=== PATIENT | male | born 1950 | race Caucasian/White ===

== ENCOUNTER 2017-01-19 12:08 | Inpatient (IN) | payer OTHER, MEDICARE ==
--- NOTE | 2017-01-19 11:57 | PDHPUP ---
History & Physical Update H&P update statement: This history and physical update is based on an assessment of the patient which was completed after admission or registration (within 24 hours), but prior to the surgery/procedure. H&P update: H&P reviewed & patient examined, no change in patient's condition since H&P completed
[~2017-01-19 12:08] MED LIST: ROPIVACAINE 0.2% 80 MG, EPINEPHrine 0.2 MG, KETOROLAC TROMETHAMINE 30 MG in SYRINGE 0 ML IU ONE; TRANEXAMIC ACID 3,000 MG in NS 50 ML IRR ONE; TRANEXAMIC ACID 3,000 MG/50 ML BAG IRR ONE
[2017-01-19] MEDS ORDERED: FAMOTIDINE 20 MG TAB PO ONE (12:47)
[2017-01-19] MEDS ORDERED: DEXAMETHASONE 4 MG/ML VIAL IVP ONE (12:47)
[2017-01-19] MEDS ORDERED: ACETAMINOPHEN 325 MG TAB PO ONE (12:47)
[2017-01-19] MEDS ORDERED: ceFAZolin 2 GM/SWFI 2 GM/20 ML SYR IVP ONE (12:47)
[2017-01-19] MEDS ORDERED: LIDOCAINE 1% 2 ML INJ ID PRN (12:54)
[2017-01-19] MEDS ORDERED: LR 1,000 ML IV ONE (12:54)
--- NOTE | 2017-01-19 14:31 | PDANEPAE ---
ANE History of Present Illness 66 yo M w OA here for R DEBBY ANE Past Medical History - Cardiovascular History Hx Hypertension: Yes Hx Arrhythmias: No Hx Chest Pain: No Hx Coronary Artery / Peripheral Vascular Disease: No Hx CHF / Valvular Disease: No Hx Palpitations: No - Pulmonary History Hx COPD: No Hx Asthma/Reactive Airway Disease: No Hx Recent Upper Respiratory Infection: No Hx Oxygen in Use at Home: No Hx Sleep Apnea: No Sleep Apnea Screening Result - Last Documented: Positive - Neurologic History Hx Cerebrovascular Accident: No Hx Seizures: No Hx Dementia: No - Endocrine History Hx Diabetes: No - Renal History Hx Renal Disorders: No - Liver History Hx Hepatic Disorders: No - Neurological & Psychiatric Hx Hx Neurological and Psychiatric Disorders: No - Cancer History Hx Cancer: No - Congenital Disorder History Hx Congenital Disorders: No - GI History Hx Gastrointestinal Disorders: Yes Gastrointestinal History Comment: reflux - Other Health History Other Health History: none - Chronic Pain History Chronic Pain: No - Surgical History Prior Surgeries: colonoscopy ANE Review of Systems Review of Systems: - Exercise capacity METS (RN): 5 METS ANE Patient History - Allergies Allergies/Adverse Reactions: No Known Allergies Allergy (Verified 12/16/16 11:18) - Home Medications Home Medications: Glucosamine/Chondroitin [Glucosamine/Chondroitin (*)] 1 each PO DAILY 12/09/16 [ Last Taken 01/05/17] Herbals/Supplements -Info Only 1 ea PO DAILY 12/09/16 [Last Taken 01/05/17] Ibuprofen [Motrin (*)] 200 mg PO DAILY PRN 12/09/16 [Last Taken 01/05/17] Lisinopril [Zestril 10 mg (*)] 10 mg PO BID 12/09/16 [Last Taken 01/05/17] Multivitamins [Multivitamin (*)] 1 each PO DAILY 12/09/16 [Last Taken 01/05/17] Testosterone [ANDROGEL 1% 5gm pkt (*)] 5 gm TD DAILY 12/09/16 [Last Taken ] - NPO status NPO Status: no food or drink >8 hours NPO Since - Liquids (Date): 01/19/17 NPO Since - Liquids (Time): 09:30 NPO Since - Solids (Date): 01/18/17 NPO Since - Solids (Time): 21:30 - Anes Hx Anes Hx: no prior problems - Smoking Hx Smoking Status: Never smoked - Alcohol Use Alcohol Use: Occasionally - Family Anes Hx Family Anes Hx: none Family Hx Anesthesia Complications: none ANE Labs/Vital Signs - Vital Signs Blood Pressure: 166/98 Heart Rate: 76 Respiratory Rate: 16 O2 Sat (%): 96 Height: 185.42 cm Weight: 92.986 kg ANE Physical Exam - Airway Neck exam: FROM Mallampati Score: Class 2 Mouth exam: normal dental/mouth exam - Pulmonary Pulmonary: no respiratory distress, clear to auscultation - Cardiovascular Cardiovascular: regular rate and rhythym, no murmur, rub, or gallop - ASA Status ASA Status: II ANE Anesthesia Plan Anesthesia Plan: GA with mask, spinal Total IV Anesthesia: Yes
[2017-01-19] MEDS ORDERED: MIDAZOLAM 2 MG/2 ML VIAL IVP ONE (14:33)
[2017-01-19] MEDS ORDERED: PROPOFOL/EMULSION 500 MG/50 ML BOTTLE IV ONE ×2 (14:51→15:56)
[2017-01-19] MEDS ORDERED: PROMETHAZINE HCL 25 MG SUPPR PR PRN (15:18)
[2017-01-19] MEDS ORDERED: LACTULOSE 20 GM/30 ML UDCUP PO PRN (15:18)
[2017-01-19] MEDS ORDERED: ONDANSETRON 4 MG/2 ML VIAL IVP PRN ×2 (15:18→15:54)
[2017-01-19] MEDS ORDERED: TEMAZEPAM 15 MG CAP PO PRN (15:18)
[2017-01-19] MEDS ORDERED: BISACODYL 10 MG SUPP PR PRN (15:18)
[2017-01-19] MEDS ORDERED: diphenhydrAMINE 25 MG CAP PO PRN (15:18)
[2017-01-19] MEDS ORDERED: METOCLOPRAMIDE 10 MG/2 ML VIAL IVP PRN (15:18)
[2017-01-19] MEDS ORDERED: MAGNESIUM HYDROXIDE 30 ML UDCUP PO PRN (15:18)
[2017-01-19] MEDS ORDERED: POLYETHYLENE GLYCOL 3350 17 GM PKT PO PRN (15:18)
[2017-01-19] MEDS ORDERED: ONDANSETRON DISINTEGRATING 4 MG TAB PO PRN (15:18)
[2017-01-19] MEDS ORDERED: DIPHENOXYLATE/ATROPINE LOMOTIL 1 TAB PO PRN (15:18)
[2017-01-19] MEDS ORDERED: CYCLOBENZAPRINE 10 MG TAB PO PRN (15:18)
[2017-01-19] MEDS ORDERED: PROMETHAZINE HCL 25 MG/ML INJ IVP PRN (15:18)
[2017-01-19] MEDS ORDERED: LR 1,000 ML IV SCH (15:30)
[2017-01-19] MEDS ORDERED: fentaNYL 100 MCG/2 ML INJ IVP PRN (15:54)
[2017-01-19] MEDS ORDERED: OXYCODONE/APAP 5/325 TAB PO PRN (15:54)
[2017-01-19] MEDS ORDERED: NALOXONE HCL 0.4 MG/ML INJ IVP PRN (15:54)
[2017-01-19] MEDS ORDERED: ACETAMINOPHEN 500 MG TAB PO PRN (15:54)
[2017-01-19] MEDS ORDERED: HYDROCODONE/APAP 5/325 TAB PO PRN (15:54)
[2017-01-19] MEDS ORDERED: HYDROmorphONE/DILAUDID 1 MG/ML INJ IVP PRN (15:54)
--- NOTE | 2017-01-19 16:24 | POSTOPPROG ---
Post Op Note Date of Operation: 01/19/17 Surgeon: Bhavin Hsu Admittance Attendant: Shala Hsu PAc Anesthesiologist: Vaishnavi Anesthesia: Spinal Pre-op Diagnosis: R hip DJD Post-op Diagnosis: same Indication: pain Procedure: R DEBBY Findings: DJD hip Inf/Abcess present in the surg proc area at time of surgery?: No EBL: 100-500
[2017-01-19 17:48] VITALS: RESP 16
[2017-01-19] MEDS: ACETAMINOPHEN 325 MG TAB PO SCH ×2 (18:35→23:06)
[2017-01-19] MEDS: LISINOPRIL 10 MG TAB PO SCH (22:05)
[2017-01-19] MEDS: FAMOTIDINE 20 MG TAB PO SCH (22:05)
[2017-01-19] MEDS: SENNOSIDES/DOCUSATE SODIUM TAB PO SCH (22:05)
[2017-01-19] MEDS: oxyCODONE IR 5 MG TAB PO PRN (22:06)
[2017-01-19] MEDS: ceFAZolin 2 GM/DEXTROSE 100 ML IV SCH (22:06)
[2017-01-20] MEDS: oxyCODONE IR 5 MG TAB PO PRN (01:44)
[2017-01-20] MEDS: ACETAMINOPHEN 325 MG TAB PO SCH ×2 (05:29→12:15)
[2017-01-20] MEDS: ceFAZolin 2 GM/DEXTROSE 100 ML IV SCH (05:29)
[2017-01-20 05:45] LABS: HEMOGLOBIN 13.4 g/dL (13.7-17.5)
--- NOTE | 2017-01-20 06:30 | GOP ---
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 ANESTHESIA: Spinal. PREOPERATIVE DIAGNOSIS: Right hip osteoarthritis. POSTOPERATIVE DIAGNOSIS: Right hip osteoarthritis. PROCEDURE PERFORMED: Total hip arthroplasty with x-ray. FINDINGS: ESTIMATED BLOOD LOSS: 200 cc. INDICATIONS: The patient has progressively worsening arthritis of the hip which has failed medical m anagement. The patient understands the treatment option including continued non-operative care and h as selected surgical intervention. The patient has decided to undergo total hip arthroplasty via the direct anterior approach understanding the risks of the procedure including, but not limited to, nneka rovascular injury, infection, persistent pain, component wear and loosening, deep venous thrombosis, pulmonary embolism, limb length inequality (including dislocation), and intraoperative fractures. DESCRIPTION OF PROCEDURE: After proper identification of the patient including verification and genoveva ing the surgical site, the patient was brought to the operating room and placed in the supine positio n. All bony prominences were well padded. Anesthesia was induced without complication and intraveno us prophylactic antibiotics were administered prior to skin incision. After prepping and draping in the usual sterile fashion, attention was drawn to the contralateral pel vis for attachment of the computer navigation tracker. Three percutaneous incisions were made over t he iliac crest and the pelvic tracker was affixed using threaded 3.5 mm pins yielding excellent fixat ion. Using computer navigation the patient's leg length and topographical pelvic anatomy was registe red without complication. Attention was then drawn to surgical exposure of the hip. An incision was made with a #10 Bard Yarelis r blade starting 3 cm lateral and 3 cm distal to the anterior superior iliac spine measuring 8 cm to 10 cm and coursing distally toward the greater trochanter. The skin and subcutaneous tissues were di vided sharply down the fascia becky. The fascia becky was incised in line with the skin incision expos ing the underlying tensor fascia becky muscle. This muscle was bluntly elevated from the fascia and t he first extracapsular Cobra retractor was placed laterally at the junction of the superior femoral n alfredo and greater trochanter. The lateral femoral circumflex vessels were identified, cauterized and d ivided with the Aquamantys bipolar cautery. The deep investing fascia of the TFL was divided to allo w proper mobilization of the muscle preventing damage during retraction. The reflected head of the r ectus femoris muscle was elevated off the anterior hip capsule and a medial Cobra retractor was place d just proximal to the lesser trochanter. The anterior capsulotomy was made sharply from the superolateral acetabulum to the saddle junction of the superior femoral neck and greater trochanter, then coursing inferomedial towards the lesser troc hanter. The retractors were then placed in the intracapsular position for femoral neck osteotomy. C orresponding to preoperative templating the osteotomy was made with the oscillating saw protecting th e greater trochanter and soft tissues. The femoral head was removed from the acetabulum with a corks crew and confirmed to be severely arthritic with exposed bone, deformity and osteophytes. Similar fi nding were confirmed in the acetabulum. The Arch table extension was then placed in 40 degrees external rotation. Attention was then drawn t o the acetabular preparation. After placement of the anterior and posterior Cobra retractors outside the labrum and intrascapular the circumferential labrum was removed sharply. The foveal contents we re then removed and hemostasis obtained with cautery. The anatomy of the acetabulum was then registe red using computer navigation. The first reamer selected was sized using the removed femoral head. Reaming began with robotic vladislav t at 40 degrees of abduction and 20 degrees of anteversion using computer navigation. Reaming ceased 0 mm less than the definitive acetabular component. The final acetabular component was inserted usi ng the computer to achieve proper orientation yielding excellent purchase and stability in the acetab ulum. The final acetabular liner was then placed and its seating confirmed. Attention was then turned to the femur. The Arch table extension was placed in extension and adducti on delivering the osteotomized femoral neck into the wound. A 2-pronged femoral elevator was placed at the calcar and another at the tip of the greater trochanter. The posterolateral capsule was relea sed with cautery allowing mobilization of the femur lateral and anterior for preparation. The oil producer al rotators were visualized and preserved. A curette and rongeur were used to open the starting poin t for broaching. Serial broaching started with the #0 broach and ended with the broach that exhibited excellent fit in the proximal femur. A change in pitch during mallet strikes was accompanied by the inability to advance the broach any further. The trial reduction was performed and fluoroscopic selena igation was utilized to check limb length. Adjustments were made to equalize limb length accordingly . After the final trials were accepted they were removed and the wound was copiously lavaged. The femo ral component was seated to the same depth as the final broach and the femoral head was impacted onto the clean trunnion. The hip was then reduced for the final time and once more fluoroscopic navigati on used to check that limb length equality was achieved. The wound was irrigated and closed in layers, the fascia becky with 2-0 Quill, the subcutaneous tissue with a 2-0 Quill, and the skin with Dermabond, including the small incisions for computer navigation . Sterile dressings were applied. Final sharps and sponge counts were accurate. The patient was th en transferred to a hospital bed and brought to the recovery room in stable condition. IMPLANTS: Accolade II size 6 at 127. Acetabular component a 62 mm Tritanium. The liner is a Triden t X3, 36 mm. The head is a Biolox Delta 36 mm, +2. /[id number]/MODL
[2017-01-20] MEDS: SENNOSIDES/DOCUSATE SODIUM TAB PO SCH (08:24)
[2017-01-20] MEDS: FAMOTIDINE 20 MG TAB PO SCH (08:25)
[2017-01-20] MEDS: LISINOPRIL 10 MG TAB PO SCH (08:25)
[2017-01-20] MEDS ORDERED: ASPIRIN EC 81 MG TAB PO SCH (09:00)
[2017-01-20 11:27] VITALS: BP 114/65; PULSE 73; TEMP 97.8; O2SAT 94
--- NOTE | 2017-01-20 19:44 | SOAPPROG ---
[facility] Progress Note Assessment/Plan: Assessment: Adelina is doing well today s/p R DEBBY pain is well controlled anemia: level expected initially postop, asymptomatic VTE PPX: recommend ASA 81 mg BID for 4 weeks D/c planning: d/c to home today Plan: 01/20/17 19:43 Subjective: Adelina is doing well today ,denies SOB, chest pain and N/V. Objective: Vital Signs Temp Pulse Resp BP Pulse Ox 36.6 C 73 16 114/65 94 01/20/17 11:25 01/20/17 11:25 01/20/17 11:25 01/20/17 11:25 01/20/17 11:25 Laboratory Results 01/20/17 05:10 01/19/17 01/20/17 01/21/17 05:59 05:59 05:59 Intake Total 2074 Output Total 120 Balance 1954 RLE: incision dressing is clean and dry, NVI, +pf/df ICD10 Worksheet Patient Problems: Problems Problem Status Onset Primary localized osteoarthritis of right hip Acute
== END 2017-01-20 12:29 | disposition home or self-care (01) | DRG 470 ==
LOC: F3N 12:08
PROVIDERS: ADMIT Orthopaedic Surgery; ATTEND Orthopaedic Surgery
DX: M16.11 Unilateral primary osteoarthritis, right hip (principal); I10 Essential (primary) hypertension
CPT/HCPCS: 97161-GP; 97165-GO; G8978-GP-CI; G8979-GP-CI; G8980-GP-CI; G8987-GO-CI; G8988-GO-CI; G8989-GO-CI; J0171; J0690; J1100; J1885; J2250; J2704; J2795